=== PATIENT | female | born 1950 | race Caucasian/White ===

== ENCOUNTER 2018-06-11 13:48 | Emergency (ER) | payer MEDICARE, MEDICAID ==
[~2018-06-11] VITALS: Ht 545.9 cm; Wt 60.0 kg
[~2018-06-11 13:48] MED LIST: ALLO100T PO; CLON-527 PO; CLOP75TA35 PO; DIPH-423 PO; ESOM40CA PO; ESTR0.3T10 PO; GABA300C PO; HYDR-565 PO; SUMA25TA35 PO; SYN0.025T PO; TOP100T PO; TRAZ-91 PO; VAL5T PO; WEL75T PO; ZOLP5TAB8 PO
[2018-06-11 15:03] VITALS: BP 136/70
[2018-06-11] MEDS ORDERED: diazepam 5mg tablet PO ONE (15:15)
[2018-06-11] MEDS ORDERED: HYDROmorphone 1 mg/ml syringe IM ONE (15:55)
[2018-06-11] MEDS ORDERED: METH-360 PO (15:56)
== END 2018-06-11 16:55 | disposition home or self-care (01) ==
LOC: ER 13:49
DX: S40.011A Contusion of right shoulder, initial encounter (principal); M54.6 Pain in thoracic spine; M54.2 Cervicalgia; G89.29 Other chronic pain; M19.90 Unspecified osteoarthritis, unspecified site; Z90.710 Acquired absence of both cervix and uterus; Z98.890 Other specified postprocedural states; Z88.0 Allergy status to penicillin; Z88.6 Allergy status to analgesic agent; Z88.5 Allergy status to narcotic agent; Z88.8 Allergy status to other drugs, medicaments and biological substances; Z79.899 Other long term (current) drug therapy; W01.0XXA Fall on same level from slipping, tripping and stumbling without subsequent striking against object, initial encounter; Y93.89 Activity, other specified; Y92.89 Other specified places as the place of occurrence of the external cause; Y99.8 Other external cause status
CPT/HCPCS: 73010; 96372; 99284; J1170

== ENCOUNTER 2018-07-03 09:51 | Emergency (ER) | payer MEDICARE, MEDICAID ==
[~2018-07-03] VITALS: Ht 167.6 cm; Wt 62.0 kg
[~2018-07-03 09:51] MED LIST changes: +METH-360 PO
[2018-07-03] MEDS ORDERED: LORazepam 2 mg/ml vial IV ONE (10:00)
[2018-07-03] MEDS ORDERED: normal saline 1000ML IV soln IVB ONE (10:00)
[2018-07-03] MEDS ORDERED: diphenhydrAMINE 50 mg/ml inj IV ONE (10:00)
[2018-07-03] MEDS ORDERED: metoclopramide 5 mg/ml inj IV ONE (10:00)
[2018-07-03 10:19] LABS: BASOPHILS % (AUTO) 0.4 % (0-1); EOSINOPHILS # (AUTO) 0.4 X10'3 (0-0.9); EOSINOPHILS % (AUTO) 3.9 % (0-6); HEMATOCRIT 42.2 % (35.0-45.0); HEMOGLOBIN 14.3 g/dl (12.0-16.0); LYMPHOCYTES # (AUTO) 3.5 X10'3 (1.1-4.8); LYMPHOCYTES % (AUTO) 32.4 % (21-51); MEAN CORPUSCULAR HEMOGLOBIN 30.5 PG (27.0-31.0); MEAN CORPUSCULAR HGB CONC 33.9 % (33.0-36.5); MONOCYTES # (AUTO) 1.2 X10'3 (0-0.9); MONOCYTES % (AUTO) 10.7 % (2-12); NEUTROPHILS # (AUTO) 5.7 X10'3 (1.8-7.7); NEUTROPHILS % (AUTO) 52.6 % (42-75); PLATELET COUNT 248 X10'3 (140-440); RED BLOOD COUNT 4.69 X10'6 (4.20-5.60); RED CELL DISTRIBUTION WIDTH 14.1 % (11.5-14.5); WHITE BLOOD COUNT 10.9 X10'3 (4.5-11.0)
[2018-07-03 10:34] LABS: ALANINE AMINOTRANSFERASE 17 U/L (12-78); ALBUMIN 3.6 G/DL (3.4-5.0); ALBUMIN/GLOBULIN RATIO 0.9 (1.1-1.5); ALKALINE PHOSPHATASE 88 IU/L (46-116); ANION GAP 9 (8-16); ASPARTATE AMINO TRANSFERASE 20 U/L (10-37); BILIRUBIN,TOTAL 0.5 MG/DL (0.1-1.0); BLOOD UREA NITROGEN 7 MG/DL (7-18); BUN/CREATININE RATIO 9.2 (6.6-38.0); CALCIUM 9.9 MG/DL (8.5-10.1); CHLORIDE 109 MMOL/L (99-107); CREATININE 0.76 MG/DL (0.40-0.90); ETHANOL < 0.010 GM/DL (0.0-0.010); GLUCOSE 113 MG/DL (70-104); POTASSIUM 4.2 MMOL/L (3.5-5.1); SODIUM 145 MMOL/L (135-145); TOTAL CARBON DIOXIDE 27.3 MMOL/L (24-32); TOTAL PROTEIN 7.4 G/DL (6.4-8.2); eGFR 76 ML/MIN
[2018-07-03 10:44] LABS: CLARITY,URINE CLEAR (Clear); COLOR,URINE YELLOW (Yellow); GLUCOSE, URINE NEGATIVE (Neg); KETONES,URINE NEGATIVE (Neg); LEUKOCYTE ESTERASE ,URINE SMALL (Neg); NITRITES, URINE NEGATIVE (Neg); OCCULT BLOOD,URINE NEGATIVE (Neg); PH,URINE 6.5 (4.8-8.0); PROTEIN,URINE NEGATIVE (Neg); UROBILINOGEN,URINE 0.2 E.U/dL (0.2-1.0)
[2018-07-03 10:51] LABS: UA COLLECTION TYPE STRAIGHT CATH
[2018-07-03 10:53] LABS: BACTERIA,URINE FEW /HPF (Neg); RBC,URINE NONE SEEN /HPF (0-2); SQUAMOUS EPITHELIAL CELL,UR FEW /LPF (FEW); URINE AMPHETAMINE SCREEN NEGATIVE (Neg); URINE BARBITUATE SCREEN NEGATIVE (Neg); URINE BENZODIAZEPINES SCREEN NEGATIVE (Neg); URINE CANNABINOID SCREEN NEGATIVE (Neg); URINE COCAINE SCREEN NEGATIVE (Neg); URINE METHADONE SCREEN NEGATIVE (Neg); URINE OPIATE SCREEN POSITIVE (Neg); URINE PHENCYCLIDINE SCREEN NEGATIVE (Neg); WBC,URINE 0-4 /HPF (0-4)
[2018-07-03 11:03] VITALS: BP 90/50
== END 2018-07-03 12:12 | disposition home or self-care (01) ==
LOC: ER 09:51
DX: R45.1 Restlessness and agitation (principal); T42.6X5A Adverse effect of other antiepileptic and sedative-hypnotic drugs, initial encounter; T42.8X5A Adverse effect of antiparkinsonism drugs and other central muscle-tone depressants, initial encounter; F05 Delirium due to known physiological condition; G89.29 Other chronic pain; M19.90 Unspecified osteoarthritis, unspecified site; Z90.710 Acquired absence of both cervix and uterus; Z98.890 Other specified postprocedural states; Z88.0 Allergy status to penicillin; Z88.6 Allergy status to analgesic agent; Z88.5 Allergy status to narcotic agent; Z88.8 Allergy status to other drugs, medicaments and biological substances; Z79.899 Other long term (current) drug therapy; Y92.89 Other specified places as the place of occurrence of the external cause
CPT/HCPCS: 36415; 80053; 80305; 80320; 81001; 85025; 96361; 96374; 99284; J2765; J7030; J1200; J2060

== ENCOUNTER 2018-10-02 16:20 | Emergency (ER) | payer MEDICARE, MEDICAID ==
[~2018-10-02] VITALS: Ht 154.9 cm; Wt 68.0 kg
[~2018-10-02 16:20] MED LIST changes: +HYDR-4353 PO; -HYDR-565 PO
[2018-10-02] MEDS ORDERED: HYDROmorphone 1 mg/ml syringe IM ONE (18:10)
[2018-10-02] MEDS ORDERED: ORPH100T2 PO (18:44)
[2018-10-02 19:24] VITALS: BP 138/95
== END 2018-10-02 19:40 | disposition home or self-care (01) ==
LOC: ER 16:21
DX: M54.2 Cervicalgia (principal); G89.29 Other chronic pain; M79.7 Fibromyalgia; M19.90 Unspecified osteoarthritis, unspecified site; Z90.710 Acquired absence of both cervix and uterus; Z98.890 Other specified postprocedural states; Z88.0 Allergy status to penicillin; Z88.6 Allergy status to analgesic agent; Z88.8 Allergy status to other drugs, medicaments and biological substances; Z88.5 Allergy status to narcotic agent; Z79.899 Other long term (current) drug therapy; W22.8XXA Striking against or struck by other objects, initial encounter; Y93.89 Activity, other specified; Y92.89 Other specified places as the place of occurrence of the external cause; Y99.9 Unspecified external cause status
CPT/HCPCS: 72125; 96372; 99284; J1170

== ENCOUNTER 2018-10-24 11:54 | Emergency (ER) | payer MEDICARE, MEDICAID ==
[~2018-10-24] VITALS: Ht 154.9 cm; Wt 64.9 kg
[~2018-10-24 11:54] MED LIST changes: +ORPH100T2 PO
[2018-10-24] MEDS ORDERED: HYDROcodone/acetaminophen 5mg/325mg tablet PO ONE (13:15)
[2018-10-24 13:34] VITALS: BP 160/63
== END 2018-10-24 14:11 | disposition home or self-care (01) ==
LOC: ER 11:55
DX: S20.212A Contusion of left front wall of thorax, initial encounter (principal); S09.8XXA Other specified injuries of head, initial encounter; G89.29 Other chronic pain; M79.7 Fibromyalgia; M19.90 Unspecified osteoarthritis, unspecified site; M81.0 Age-related osteoporosis without current pathological fracture; Z88.0 Allergy status to penicillin; Z88.6 Allergy status to analgesic agent; Z88.5 Allergy status to narcotic agent; Z88.8 Allergy status to other drugs, medicaments and biological substances; Z79.899 Other long term (current) drug therapy; Z90.710 Acquired absence of both cervix and uterus; W18.09XA Striking against other object with subsequent fall, initial encounter; Y93.89 Activity, other specified; Y92.89 Other specified places as the place of occurrence of the external cause; Y99.8 Other external cause status
CPT/HCPCS: 70450; 71046; 72125; 99284

== ENCOUNTER 2018-12-06 20:53 | Emergency (ER) | payer MEDICARE, MEDICAID ==
[~2018-12-06] VITALS: Ht 154.9 cm; Wt 64.8 kg
[2018-12-06 21:06] VITALS: BP 134/78
[2018-12-06] MEDS ORDERED: normal saline 1000ML IV soln IVB ONE ×2 (21:50→22:40)
[2018-12-06 22:28] LABS: BASOPHILS # (AUTO) 0.1 X10'3 (0-0.2); BASOPHILS % (AUTO) 0.4 % (0-1); EOSINOPHILS # (AUTO) 0.4 X10'3 (0-0.9); HEMATOCRIT 39.4 % (35.0-45.0); HEMOGLOBIN 13.4 g/dl (12.0-16.0); LYMPHOCYTES # (AUTO) 3.2 X10'3 (1.1-4.8); LYMPHOCYTES % (AUTO) 24.4 % (21-51); MEAN CORPUSCULAR HGB CONC 34.1 % (33.0-36.5); MEAN CORPUSCULAR VOLUME 88.2 FL (78-98); MEAN PLATELET VOLUME 7.5 FL (7.4-10.4); MONOCYTES # (AUTO) 1.3 X10'3 (0-0.9); NEUTROPHILS # (AUTO) 8.1 X10'3 (1.8-7.7); NEUTROPHILS % (AUTO) 62.2 % (42-75); PLATELET COUNT 271 X10'3 (140-440); RED BLOOD COUNT 4.47 X10'6 (4.20-5.60); RED CELL DISTRIBUTION WIDTH 14.5 % (11.5-14.5)
[2018-12-06 22:34] LABS: ALANINE AMINOTRANSFERASE 23 U/L (12-78); ALBUMIN 3.8 G/DL (3.4-5.0); ALKALINE PHOSPHATASE 100 IU/L (46-116); ANION GAP 10 (8-16); ASPARTATE AMINO TRANSFERASE 22 U/L (10-37); BILIRUBIN,TOTAL 0.5 MG/DL (0.1-1.0); BLOOD UREA NITROGEN 13 MG/DL (7-18); BUN/CREATININE RATIO 12.9 (6.6-38.0); CALCIUM 9.5 MG/DL (8.5-10.1); CHLORIDE 107 MMOL/L (99-107); CREATININE 1.01 MG/DL (0.40-0.90); GLUCOSE 113 MG/DL (70-104); POTASSIUM 3.7 MMOL/L (3.5-5.1); SODIUM 146 MMOL/L (135-145); TOTAL CARBON DIOXIDE 29.1 MMOL/L (24-32); TOTAL PROTEIN 7.6 G/DL (6.4-8.2); eGFR 55 ML/MIN
[2018-12-06 22:57] LABS: URINE AMPHETAMINE SCREEN NEGATIVE (Neg); URINE BARBITUATE SCREEN NEGATIVE (Neg); URINE BENZODIAZEPINES SCREEN NEGATIVE (Neg); URINE CANNABINOID SCREEN NEGATIVE (Neg); URINE COCAINE SCREEN NEGATIVE (Neg); URINE METHADONE SCREEN NEGATIVE (Neg); URINE OPIATE SCREEN POSITIVE (Neg); URINE PHENCYCLIDINE SCREEN NEGATIVE (Neg)
[2018-12-06 23:04] LABS: CLARITY,URINE CLEAR (Clear); COLOR,URINE YELLOW (Yellow); GLUCOSE, URINE NEGATIVE (Neg); KETONES,URINE NEGATIVE (Neg); LEUKOCYTE ESTERASE ,URINE SMALL (Neg); NITRITES, URINE NEGATIVE (Neg); OCCULT BLOOD,URINE MODERATE (Neg); PROTEIN,URINE NEGATIVE (Neg); UROBILINOGEN,URINE 0.2 E.U/dL (0.2-1.0)
[2018-12-06 23:14] LABS: UA COLLECTION TYPE CLN CATCH MIDSTREAM
--- NOTE | 2018-12-06 23:15 | NUR ---
pt offered a bedside commode to collect a UA, pt did not respond to requests to use the commode; unable to orient. Attempted to straight cath pt for UA. PT uncooperative stating she was 'broken down there", grabbing at staff and thrashing on the bed. Two nurses assisted pt to commode and urine was collected.
[2018-12-06 23:16] LABS: SQUAMOUS EPITHELIAL CELL,UR FEW /LPF (FEW)
[2018-12-06 23:17] LABS: BACTERIA,URINE 1+ /HPF (Neg); WBC,URINE 0-4 /HPF (0-4)
--- NOTE | 2018-12-07 00:10 | NUR ---
IV site bleeding and infiltrated. IV removed from L AC, w/ heavy bleeding from site. Compression bandaged applied to control bleeding.
--- NOTE | 2018-12-07 00:11 | NUR ---
Pt uncooperative with placement of new IV. Pt thrashes arms and legs, clutching her head stating her head hurts. Unable to orient place, time or situation.
--- NOTE | 2018-12-07 00:54 | NUR ---
contacted pt son Darren Haskins, notified him that his mother was being discharged and to please come him to take her home.
--- NOTE | 2018-12-07 01:05 | NUR ---
pt continues to ask where she is; pt reoriented as needed. Waiting for son to give her a ride home.
== END 2018-12-07 01:19 | disposition home or self-care (01) ==
LOC: ER 20:54
DX: R51 Headache (principal); G89.29 Other chronic pain; E03.9 Hypothyroidism, unspecified; M79.7 Fibromyalgia; M19.90 Unspecified osteoarthritis, unspecified site; M81.0 Age-related osteoporosis without current pathological fracture; Z98.890 Other specified postprocedural states; Z90.710 Acquired absence of both cervix and uterus; Z88.0 Allergy status to penicillin; Z88.6 Allergy status to analgesic agent; Z88.5 Allergy status to narcotic agent; Z79.899 Other long term (current) drug therapy
CPT/HCPCS: 36415; 80053; 80305; 81001; 85025; 87088; 99284; J7030

== ENCOUNTER 2018-12-17 16:05 | Emergency (ER) | payer MEDICARE, MEDICAID ==
[~2018-12-17] VITALS: Ht 154.9 cm; Wt 66.0 kg
[2018-12-17 16:10] VITALS: BP 130/48
[2018-12-17] MEDS ORDERED: normal saline 1000ML IV soln IVB ONE (16:10)
--- NOTE | 2018-12-17 16:39 | NUR ---
CAREGIVER AT BEDSIDE AND STATES, PT VERY DEPRESSED TODAY HAD TO PUT HER DOG DOWN, DUE TO BITING. PT TOOK MULTIPLE MEDS TODAY, METROPOLOL 50MG, OXCONTIN 2 20MG TABS, GABAPENTIN?, BACLOFEN 2 TABS DOESNT KNOW DOSE.
[2018-12-17 16:40] LABS: BASOPHILS % (AUTO) 0.4 % (0-1); EOSINOPHILS # (AUTO) 0.2 X10'3 (0-0.9); EOSINOPHILS % (AUTO) 2.3 % (0-6); HEMATOCRIT 42.3 % (35.0-45.0); HEMOGLOBIN 14.2 g/dl (12.0-16.0); LYMPHOCYTES # (AUTO) 1.7 X10'3 (1.1-4.8); LYMPHOCYTES % (AUTO) 18.5 % (21-51); MEAN CORPUSCULAR HEMOGLOBIN 29.7 PG (27.0-31.0); MEAN CORPUSCULAR HGB CONC 33.6 g/dL (33.0-36.5); MEAN CORPUSCULAR VOLUME 88.5 FL (78-98); MEAN PLATELET VOLUME 7.8 FL (7.4-10.4); MONOCYTES # (AUTO) 0.7 X10'3 (0-0.9); MONOCYTES % (AUTO) 8.1 % (2-12); NEUTROPHILS # (AUTO) 6.5 X10'3 (1.8-7.7); NEUTROPHILS % (AUTO) 70.7 % (42-75); PLATELET COUNT 324 X10'3 (140-440); RED BLOOD COUNT 4.78 X10'6 (4.20-5.60); RED CELL DISTRIBUTION WIDTH 14.4 % (11.5-14.5); WHITE BLOOD COUNT 9.1 X10'3 (4.5-11.0)
[2018-12-17 16:56] LABS: ALANINE AMINOTRANSFERASE 20 U/L (12-78); ALBUMIN 3.6 G/DL (3.4-5.0); ALBUMIN/GLOBULIN RATIO 0.9 (1.1-1.5); ALKALINE PHOSPHATASE 108 IU/L (46-116); ANION GAP 13 (8-16); ASPARTATE AMINO TRANSFERASE 18 U/L (10-37); BILIRUBIN,TOTAL 0.4 MG/DL (0.1-1.0); BLOOD UREA NITROGEN 12 MG/DL (7-18); BUN/CREATININE RATIO 12.2 (6.6-38.0); CALCIUM 8.8 MG/DL (8.5-10.1); CHLORIDE 108 MMOL/L (99-107); CREATININE 0.98 MG/DL (0.40-0.90); ETHANOL < 0.010 GM/DL (0.0-0.010); GLUCOSE 152 MG/DL (70-104); POTASSIUM 3.7 MMOL/L (3.5-5.1); SODIUM 143 MMOL/L (135-145); TOTAL CARBON DIOXIDE 21.7 MMOL/L (24-32); TOTAL PROTEIN 7.6 G/DL (6.4-8.2); eGFR 57 ML/MIN
--- NOTE | 2018-12-17 18:32 | NUR ---
PT TAKEN TO BATHROOM AND PLACED ON TOILET. PT COULD NOT URINATE. TRANSFERRED BACK TO WHEELCHAIR AFTER 15 MINS.
== END 2018-12-17 18:35 | disposition home or self-care (01) ==
LOC: ER 16:06
DX: G89.4 Chronic pain syndrome (principal); R06.89 Other abnormalities of breathing; E86.0 Dehydration; R51 Headache; E03.9 Hypothyroidism, unspecified; M19.90 Unspecified osteoarthritis, unspecified site; M81.0 Age-related osteoporosis without current pathological fracture; Z90.710 Acquired absence of both cervix and uterus; Z88.0 Allergy status to penicillin; Z88.6 Allergy status to analgesic agent; Z88.5 Allergy status to narcotic agent; Z79.899 Other long term (current) drug therapy
CPT/HCPCS: 36415; 80053; 80320; 85025; 99283

== ENCOUNTER 2018-12-17 18:36 | Emergency (ER) | payer MEDICARE, MEDICAID | END 2018-12-17 23:56 | disposition left against medical advice (07) | LOC: ER 18:37 | DX: R53.1 Weakness (principal); Z53.21 Procedure and treatment not carried out due to patient leaving prior to being seen by health care provider ==

== ENCOUNTER 2021-01-02 16:32 | Emergency (ER) | payer BC, MEDICAID ==
[~2021-01-02] VITALS: Ht 154.9 cm; Wt 63.6 kg
[~2021-01-02 16:32] MED LIST changes: +CLOP75TA34 PO; -CLOP75TA35 PO; +DIAZ5TAB22 PO; -VAL5T PO
--- NOTE | 2021-01-02 16:41 | NUR ---
Dr Willis at bedside.
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
[2021-01-02 19:42] LABS: CLARITY,URINE SLIGHTLY CLOUDY (Clear); COLOR,URINE YELLOW (Yellow); GLUCOSE, URINE NEGATIVE (Neg); KETONES,URINE NEGATIVE (Neg); LEUKOCYTE ESTERASE ,URINE MODERATE (Neg); NITRITES, URINE NEGATIVE (Neg); OCCULT BLOOD,URINE NEGATIVE (Neg); PROTEIN,URINE NEGATIVE (Neg); UROBILINOGEN,URINE 0.2 E.U/dL (0.2-1.0)
[2021-01-02 19:44] LABS: UA COLLECTION TYPE CLN CATCH MIDSTREAM
[2021-01-02] MEDS ORDERED: HYDROcodone/acetaminophen 5mg/325mg tablet PO ONE (19:50)
[2021-01-02 20:01] LABS: BACTERIA,URINE 1+ /HPF (Neg); MUCUS STRANDS NONE SEEN /LPF (Neg); RBC,URINE NONE SEEN /HPF (0-2); SQUAMOUS EPITHELIAL CELL,UR MODERATE /LPF (FEW); WBC,URINE 20-30 /HPF (0-4)
[2021-01-02 20:02] LABS: YEAST FEW /HPF (NEGATIVE)
[2021-01-02] MEDS ORDERED: NITR100C6 PO (20:06)
--- NOTE | 2021-01-02 20:08 | NUR ---
after talking with pt and [employer] there was not enough evidence to support a sart exam, i talked with patient and told her that we can still do an exam but that the police would not be involved. I also offered pt to do a pelvic exam and collect urine to see if we saw anything abnormal and then we would do a sart exam if there was any evidence of any trauma. pt agreed to this and we will proceded with a medical pelvic exam and continue to monitor. [facility] advocate is at bedside through all of this.
--- NOTE | 2021-01-02 20:15 | NUR ---
After pelvic exam was done i asked pt if she felt ok about the exam that was performed and if she was ok with us not doing a sart exam. Pt stated "yes, im very relieved that nothing was seen and i am very happy with everything that you did today thank you so much." [employer] was called and are on their way to pickling operator pt.
[2021-01-02 20:24] VITALS: BP 136/91
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
--- NOTE | 2021-01-02 20:56 | NUR ---
the reference number from [facility] [id number] officer Jana valadez
== END 2021-01-02 21:25 | disposition home or self-care (01) ==
LOC: ER 16:33 → EEVIPCON 16:33 → ER 21:25
DX: R10.2 Pelvic and perineal pain (principal); N39.0 Urinary tract infection, site not specified; E03.9 Hypothyroidism, unspecified; G89.29 Other chronic pain; M79.7 Fibromyalgia; M81.0 Age-related osteoporosis without current pathological fracture; M19.90 Unspecified osteoarthritis, unspecified site; F17.200 Nicotine dependence, unspecified, uncomplicated; Z90.710 Acquired absence of both cervix and uterus; Z88.0 Allergy status to penicillin; Z88.8 Allergy status to other drugs, medicaments and biological substances; Z91.013 Allergy to seafood; Z79.818 Long term (current) use of other agents affecting estrogen receptors and estrogen levels; Z79.899 Other long term (current) drug therapy
CPT/HCPCS: 81001; 87088; 99284

== ENCOUNTER 2021-10-06 12:55 | Emergency (ER) | payer BC, MEDICAID ==
[~2021-10-06] VITALS: Ht 154.9 cm; Wt 63.0 kg
[~2021-10-06 12:55] MED LIST changes: +ALPR0.255 PO; +ATOR20TA66 PO; -CLON-527 PO; -DIAZ5TAB22 PO; -DIPH-423 PO; +LEVO100T PO; -METH-360 PO; -ORPH100T2 PO; -SYN0.025T PO; +TIZA-205 PO; +VENL75CA61 PO; -WEL75T PO; -ZOLP5TAB8 PO
[2021-10-06 15:07] VITALS: BP 233/117
[2021-10-06] MEDS ORDERED: cyclobenzaprine 10mg tablet PO ONE (18:50)
[2021-10-06] MEDS ORDERED: HYDROcodone/acetaminophen 5mg/325mg tablet PO ONE (18:50)
[2021-10-06] MEDS ORDERED: TIZA4TAB11 PO (18:51)
== END 2021-10-06 19:06 | disposition home or self-care (01) ==
LOC: ER 12:56
DX: M25.551 Pain in right hip (principal); M25.511 Pain in right shoulder; G89.29 Other chronic pain; I10 Essential (primary) hypertension; K21.9 Gastro-esophageal reflux disease without esophagitis; E03.9 Hypothyroidism, unspecified; F41.9 Anxiety disorder, unspecified; Z90.710 Acquired absence of both cervix and uterus; Z98.890 Other specified postprocedural states; Z88.0 Allergy status to penicillin; Z88.8 Allergy status to other drugs, medicaments and biological substances; Z88.6 Allergy status to analgesic agent; Z79.899 Other long term (current) drug therapy
CPT/HCPCS: 73060; 73502; 99284

== ENCOUNTER 2023-05-07 15:38 | Emergency (ER) | payer OTHER, MEDICAID ==
[~2023-05-07] VITALS: Ht 160 cm; Wt 65.0 kg
[~2023-05-07 15:38] MED LIST changes: +TIZA4TAB11 PO
[2023-05-07] MEDS ORDERED: normal saline 1000ML IV soln IVB ONE (16:00)
[2023-05-07] MEDS ORDERED: ondansetron/PF 4mg/2ml inj IV ONE (16:20)
[2023-05-07 16:23] LABS: BASOPHILS # (AUTO) 0.1 X10'3 (0-0.2); BASOPHILS % (AUTO) 0.6 % (0-1); EOSINOPHILS # (AUTO) 0.4 X10'3 (0-0.9); EOSINOPHILS % (AUTO) 2.7 % (0-6); HEMATOCRIT 44.2 % (35.0-45.0); HEMOGLOBIN 15.5 g/dl (12.0-16.0); LYMPHOCYTES # (AUTO) 3.8 X10'3 (1.1-4.8); LYMPHOCYTES % (AUTO) 27.4 % (21-51); MEAN CORPUSCULAR HEMOGLOBIN 30.4 PG (27.0-31.0); MEAN CORPUSCULAR VOLUME 86.9 FL (78-98); MEAN PLATELET VOLUME 7.3 FL (7.4-10.4); MONOCYTES # (AUTO) 1.3 X10'3 (0-0.9); MONOCYTES % (AUTO) 9.4 % (2-12); NEUTROPHILS # (AUTO) 8.3 X10'3 (1.8-7.7); NEUTROPHILS % (AUTO) 59.9 % (42-75); PLATELET COUNT 379 X10'3 (140-440); RED BLOOD COUNT 5.09 X10'6 (4.20-5.60); RED CELL DISTRIBUTION WIDTH 14.2 % (11.5-14.5); WHITE BLOOD COUNT 13.9 X10'3 (4.5-11.0)
--- NOTE | 2023-05-07 16:30 | NUR ---
Stroke alert called off at 1630.
[2023-05-07 16:38] LABS: APTT 25 SECONDS (22-32)
[2023-05-07 16:40] LABS: ALANINE AMINOTRANSFERASE 33 U/L (12-78); ALBUMIN 3.7 G/DL (3.4-5.0); ALBUMIN/GLOBULIN RATIO 0.9 (1.1-1.5); ALKALINE PHOSPHATASE 120 IU/L (46-116); ANION GAP 10 (8-16); ASPARTATE AMINO TRANSFERASE 30 U/L (10-37); BILIRUBIN,TOTAL 0.6 MG/DL (0.1-1.0); BLOOD UREA NITROGEN 14 MG/DL (7-18); BUN/CREATININE RATIO 15.2 (10.0-20.0); CALCIUM 9.2 MG/DL (8.5-10.1); CHLORIDE 102 MMOL/L (99-107); CREATININE 0.92 MG/DL (0.40-0.90); GLUCOSE 212 MG/DL (70-104); POTASSIUM 3.2 MMOL/L (3.5-5.1); SODIUM 140 MMOL/L (135-145); TOTAL PROTEIN 7.9 G/DL (6.4-8.2); eGFR 60 ML/MIN
--- NOTE | 2023-05-07 16:43 | NUR ---
Attempted to straight cath patient, patient refused, placed patient on bedpan. will try again on bed pain in 30 minutes
[2023-05-07] MEDS ORDERED: potassium Cl 20 mEq SR tablet PO STA (17:54)
[2023-05-07 22:16] LABS: CLARITY,URINE SLIGHTLY CLOUDY (Clear); COLOR,URINE YELLOW (Yellow); GLUCOSE, URINE NEGATIVE (Neg); KETONES,URINE NEGATIVE (Neg); LEUKOCYTE ESTERASE ,URINE SMALL (Neg); NITRITES, URINE NEGATIVE (Neg); OCCULT BLOOD,URINE NEGATIVE (Neg); PH,URINE 6.5 (4.8-8.0); PROTEIN,URINE 100 mg/dl (Neg)
[2023-05-07 22:30] LABS: URINE AMPHETAMINE SCREEN POSITIVE (Neg); URINE BARBITUATE SCREEN NEGATIVE (Neg); URINE BENZODIAZEPINES SCREEN NEGATIVE (Neg); URINE CANNABINOID SCREEN POSITIVE (Neg); URINE COCAINE SCREEN NEGATIVE (Neg); URINE METHADONE SCREEN NEGATIVE (Neg); URINE OPIATE SCREEN NEGATIVE (Neg); URINE PHENCYCLIDINE SCREEN NEGATIVE (Neg)
[2023-05-07 22:35] LABS: UA COLLECTION TYPE NON-SPECIFIED
[2023-05-07 22:36] LABS: CAL OXALATE CRYSTALS 3+ /HPF (NEGATIVE)
[2023-05-07 22:37] LABS: HYALINE CASTS 0-3 /LPF (NEGATIVE); RBC,URINE NONE SEEN /HPF (0-2); SQUAMOUS EPITHELIAL CELL,UR MODERATE /LPF (FEW); TRANSITIONAL EPI CELLS,URINE FEW /HPF
[2023-05-07 22:38] LABS: BACTERIA,URINE 1+ /HPF (Neg); WBC CLUMPS,URINE FEW /HPF (NEGATIVE)
[2023-05-07] MEDS ORDERED: FOSFOMYCIN TROMETHAMINE 3 GM PACKET PO ONE (23:15)
[2023-05-07] MEDS ORDERED: carvedilol 6.25mg tablet PO ONE (23:20)
[2023-05-07] MEDS ORDERED: carvedilol 6.25mg tablet PO SCH (23:20)
[2023-05-07 23:30] VITALS: BP_DIAS 80
[2023-05-07] MEDS ORDERED: amLODIPine 5mg tablet PO ONE (23:45)
[2023-05-08 00:07] VITALS: BP_SYST 178
== END 2023-05-08 01:21 | disposition home or self-care (01) ==
LOC: ER 15:39
DX: N39.0 Urinary tract infection, site not specified (principal); R53.1 Weakness; E86.0 Dehydration; E87.6 Hypokalemia; F15.10 Other stimulant abuse, uncomplicated; I10 Essential (primary) hypertension; K21.9 Gastro-esophageal reflux disease without esophagitis; E03.9 Hypothyroidism, unspecified; Z88.0 Allergy status to penicillin; Z88.8 Allergy status to other drugs, medicaments and biological substances; Z90.710 Acquired absence of both cervix and uterus
CPT/HCPCS: 36415; 70450; 71045; 80053; 80305; 81001; 84145; 85025; 85610; 85730; 87088; 93005; 96374; 99285; J2405; J7030; C1758

== ENCOUNTER 2023-07-06 18:27 | Emergency (ER) | payer OTHER, MEDICAID ==
[~2023-07-06] VITALS: Ht 154.9 cm; Wt 63.6 kg
[2023-07-06 18:39] VITALS: BP 177/53; PULSE 78; TEMP 97.9; O2SAT 98
[2023-07-06] MEDS ORDERED: NAPR-56 PO (20:14)
[2023-07-06] MEDS ORDERED: ketorolac trometh inj. 60 MG/2 ML VIAL IM ONE (20:15)
[2023-07-06 20:40] VITALS: RESP 17
--- NOTE | 2023-07-06 20:49 | NUR ---
CALLED [facility] TO VERIFY PATIENT STAY.
--- NOTE | 2023-07-06 21:01 | NUR ---
[facility] CALLED FOR PT. EST TIME 30MIN
== END 2023-07-06 21:36 | disposition home or self-care (01) ==
LOC: ER 18:28
DX: S93.401A Sprain of unspecified ligament of right ankle, initial encounter (principal); I10 Essential (primary) hypertension; E03.9 Hypothyroidism, unspecified; G89.29 Other chronic pain; M79.7 Fibromyalgia; M19.90 Unspecified osteoarthritis, unspecified site; M06.9 Rheumatoid arthritis, unspecified; F17.200 Nicotine dependence, unspecified, uncomplicated; M81.0 Age-related osteoporosis without current pathological fracture; Z90.710 Acquired absence of both cervix and uterus; Z88.0 Allergy status to penicillin; Z88.5 Allergy status to narcotic agent; Z88.8 Allergy status to other drugs, medicaments and biological substances; Z79.899 Other long term (current) drug therapy; W22.8XXA Striking against or struck by other objects, initial encounter; Y93.01 Activity, walking, marching and hiking; Y92.89 Other specified places as the place of occurrence of the external cause; Y99.8 Other external cause status
CPT/HCPCS: 73610; 96372; 99283; J1885; A6449

== ENCOUNTER 2024-09-01 18:23 | Emergency (ER) | payer BC, MEDICAID ==
[~2024-09-01] VITALS: Ht 154.9 cm; Wt 56.8 kg
[2024-09-01 22:01] VITALS: BP 142/82; PULSE 82; RESP 18; TEMP 98.6; O2SAT 96
== END 2024-09-01 22:16 | disposition home or self-care (01) ==
LOC: ER 18:23
DX: M25.562 Pain in left knee (principal); M79.7 Fibromyalgia; M06.9 Rheumatoid arthritis, unspecified; K21.9 Gastro-esophageal reflux disease without esophagitis; I10 Essential (primary) hypertension; F17.200 Nicotine dependence, unspecified, uncomplicated; E03.9 Hypothyroidism, unspecified; M81.0 Age-related osteoporosis without current pathological fracture; G89.29 Other chronic pain; Z88.0 Allergy status to penicillin; Z88.6 Allergy status to analgesic agent; Z88.8 Allergy status to other drugs, medicaments and biological substances; Z88.5 Allergy status to narcotic agent; Z90.710 Acquired absence of both cervix and uterus; Z87.19 Personal history of other diseases of the digestive system
CPT/HCPCS: 29530; 73564; 93971; 99284

== ENCOUNTER 2024-09-13 11:16 | Inpatient (IN) | payer BC, MEDICAID ==
[~2024-09-13] VITALS: Ht 152.4 cm; Wt 63.8 kg
[2024-09-13] MEDS: HYDROcodone/acetaminophen 10/325mg tab PO ONE (13:14)
[2024-09-13] MEDS: ondansetron 4mg rapidly disintigrating tab PO ONE (13:15)
[2024-09-13] MEDS: morphine 4 MG/ML inj SYRINge IV ONE (14:35)
[2024-09-13 16:42] LABS: BILIRUBIN,URINE NEGATIVE (Neg); CLARITY,URINE SLIGHTLY CLOUDY (Clear); COLOR,URINE YELLOW (Yellow); GLUCOSE, URINE NEGATIVE (Neg); KETONES,URINE NEGATIVE (Neg); LEUKOCYTE ESTERASE ,URINE MODERATE (Neg); NITRITES, URINE NEGATIVE (Neg); OCCULT BLOOD,URINE TRACE-INTACT (Neg); PH,URINE 6.5 (4.8-8.0); PROTEIN,URINE NEGATIVE (Neg); UROBILINOGEN,URINE 0.2 E.U/dL (0.2-1.0)
[2024-09-13 16:46] LABS: UA COLLECTION TYPE NON-SPECIFIED
[2024-09-13 16:49] LABS: BACTERIA,URINE 1+ /HPF (Neg); MUCUS STRANDS NONE SEEN /LPF (Neg); RBC,URINE 0-2 /HPF (0-2); SQUAMOUS EPITHELIAL CELL,UR MODERATE /LPF (FEW); TRICHOMONAS,URINE FEW /HPF (NEGATIVE)
[2024-09-13] MEDS: diazepam 5mg tablet PO ONE (17:00)
[2024-09-13 17:17] LABS: BASOPHILS # (AUTO) 0.1 X10'3 (0-0.2); BASOPHILS % (AUTO) 0.6 % (0-1); EOSINOPHILS # (AUTO) 0.2 X10'3 (0-0.9); EOSINOPHILS % (AUTO) 1.3 % (0-6); HEMATOCRIT 46.5 % (35.0-45.0); HEMOGLOBIN 15.6 g/dl (12.0-16.0); LYMPHOCYTES # (AUTO) 3.3 X10'3 (1.1-4.8); LYMPHOCYTES % (AUTO) 21.2 % (21-51); MEAN CORPUSCULAR HEMOGLOBIN 29.4 PG (27.0-31.0); MEAN CORPUSCULAR HGB CONC 33.7 g/dL (33.0-36.5); MEAN CORPUSCULAR VOLUME 87.3 FL (78-98); MEAN PLATELET VOLUME 7.6 FL (7.4-10.4); MONOCYTES # (AUTO) 1.1 X10'3 (0-0.9); MONOCYTES % (AUTO) 7.3 % (2-12); NEUTROPHILS # (AUTO) 10.8 X10'3 (1.8-7.7); NEUTROPHILS % (AUTO) 69.6 % (42-75); PLATELET COUNT 276 X10'3 (140-440); RED BLOOD COUNT 5.32 X10'6 (4.20-5.60); RED CELL DISTRIBUTION WIDTH 14.3 % (11.5-14.5); WHITE BLOOD COUNT 15.5 X10'3 (4.5-11.0)
[2024-09-13 17:29] LABS: ALANINE AMINOTRANSFERASE 28 U/L (12-78); ALBUMIN 3.8 G/DL (3.4-5.0); ALKALINE PHOSPHATASE 117 IU/L (46-116); ANION GAP 8 (8-16); ASPARTATE AMINO TRANSFERASE 24 U/L (10-37); BILIRUBIN,TOTAL 0.9 MG/DL (0.1-1.0); BLOOD UREA NITROGEN 8 MG/DL (7-18); BUN/CREATININE RATIO 11.9 (10.0-20.0); CALCIUM 9.1 MG/DL (8.5-10.1); CHLORIDE 102 MMOL/L (99-107); CREATININE 0.67 MG/DL (0.40-0.90); GLUCOSE 164 MG/DL (70-104); POTASSIUM 3.9 MMOL/L (3.5-5.1); SODIUM 136 MMOL/L (135-145); TOTAL CARBON DIOXIDE 25.8 MMOL/L (24-32); TOTAL PROTEIN 7.8 G/DL (6.4-8.2); eCRCL 55 ML/MIN; eGFR 87 ML/MIN
[2024-09-13] MEDS ORDERED: acetaminophen 325mg tablet PO PRN (19:20)
[2024-09-13] MEDS: CefTRIAXone 2gm/D5W 50ml BAG 50 ML IV SCH (20:00)
[2024-09-13] MEDS: PERFLUTREN PROTEIN-A MICROSPHR (Optison) 0.22 MG/ML 3ML VIAL IV ONE (20:55)
[2024-09-13] MEDS: morphine 4 MG/ML inj SYRINge IV PRN (21:16)
[2024-09-13] MEDS: docusate sod 100mg capsule PO SCH (22:02)
[2024-09-13] MEDS: atorvastatin 20mg tablet PO SCH (22:02)
[2024-09-13] MEDS: normal saline 1000ml 1,000 ML IV SCH (22:03)
[2024-09-14 02:15] LABS: BASOPHILS # (AUTO) 0.1 X10'3 (0-0.2); BASOPHILS % (AUTO) 0.7 % (0-1); EOSINOPHILS # (AUTO) 0.4 X10'3 (0-0.9); HEMATOCRIT 44.6 % (35.0-45.0); HEMOGLOBIN 14.8 g/dl (12.0-16.0); LYMPHOCYTES # (AUTO) 3.7 X10'3 (1.1-4.8); MEAN CORPUSCULAR HEMOGLOBIN 29.3 PG (27.0-31.0); MEAN CORPUSCULAR HGB CONC 33.3 g/dL (33.0-36.5); MEAN PLATELET VOLUME 7.7 FL (7.4-10.4); MONOCYTES # (AUTO) 1.1 X10'3 (0-0.9); MONOCYTES % (AUTO) 8.3 % (2-12); PLATELET COUNT 255 X10'3 (140-440); RED BLOOD COUNT 5.07 X10'6 (4.20-5.60); RED CELL DISTRIBUTION WIDTH 14.5 % (11.5-14.5); WHITE BLOOD COUNT 13.3 X10'3 (4.5-11.0)
[2024-09-14 02:29] LABS: ALANINE AMINOTRANSFERASE 24 U/L (12-78); ALBUMIN 3.3 G/DL (3.4-5.0); ALBUMIN/GLOBULIN RATIO 0.8 (1.1-1.5); ALKALINE PHOSPHATASE 104 IU/L (46-116); ANION GAP 4 (8-16); ASPARTATE AMINO TRANSFERASE 25 U/L (10-37); BILIRUBIN,TOTAL 0.5 MG/DL (0.1-1.0); BLOOD UREA NITROGEN 8 MG/DL (7-18); BUN/CREATININE RATIO 10.1 (10.0-20.0); CALCIUM 8.6 MG/DL (8.5-10.1); CHLORIDE 99 MMOL/L (99-107); CREATININE 0.79 MG/DL (0.40-0.90); FREE T4 (FREE THYROXINE) 1.12 NG/DL (0.73-1.40); GLUCOSE 228 MG/DL (70-104); HDL CHOLESTEROL 46 MG/DL (35-60); LDL CHOLESTEROL 136 MG/DL (50-100); POTASSIUM 3.5 MMOL/L (3.5-5.1); SODIUM 132 MMOL/L (135-145); THYROID STIMULATING HORMONE 5.29 ulU/ml (0.34-4.50); TOTAL CARBON DIOXIDE 28.6 MMOL/L (24-32); TOTAL PROTEIN 7.4 G/DL (6.4-8.2); TRIGLYCERIDES 184 MG/DL (20-135); eCRCL 46 ML/MIN; eGFR 72 ML/MIN
[2024-09-14 02:33] LABS: CHOL/HDL RATIO 4.9 (0.00-4.99); CHOLESTEROL 224 MG/DL (0-200)
[2024-09-14] MEDS: levoTHYROXINE 100mcg tablet PO SCH (06:59)
[2024-09-14] MEDS ORDERED: clopidogrel 75mg tablet PO SCH (08:00)
[2024-09-14] MEDS: HYDROcodone/acetaminophen 10/325mg tab PO PRN (09:39)
[2024-09-14] MEDS ORDERED: iohexol 350MG/ML 100ml bottle IV ONE (10:36)
[2024-09-14] MEDS: nicotine 21mg patch - 24 hr TD SCH (10:37)
[2024-09-14] MEDS: cyclobenzaprine 10mg tablet PO SCH (11:16)
[2024-09-14] MEDS: ondansetron/PF 4mg/2ml inj IV PRN (11:26)
[2024-09-14] MEDS: metoprolol tartrate 1mg/ml inj IV STA (13:28)
[2024-09-14 14:00] VITALS: BP 200/60; PULSE 66; RESP 14; TEMP 98.1; O2SAT 96
[2024-09-14] MEDS: hydrALAZINE 20mg/ml inj. IV PRN (14:29)
[2024-09-14] MEDS: HYDROcodone/acetaminophen 5mg/325mg tablet PO PRN (14:37)
[2024-09-14 16:00] VITALS: RESP 14; O2SAT 96
[2024-09-14] MEDS: apixaban 5mg tablet PO SCH (16:00)
[2024-09-14 18:00] VITALS: BP 140/70; PULSE 72; RESP 19; TEMP 97.8; O2SAT 97
[2024-09-14 20:00] VITALS: RESP 18; O2SAT 97
[2024-09-14] MEDS: metoprolol tartrate 1mg/ml inj IV SCH (20:00)
[2024-09-14 22:00] VITALS: BP 98/62; PULSE 67; RESP 20; TEMP 97.8; O2SAT 97
[2024-09-14] MEDS: atorvastatin 20mg tablet PO SCH (22:08)
[2024-09-14] MEDS: morphine 2 MG/ML inj. syringe IV PRN (22:10)
[2024-09-15] VITALS (10 sets, daily range): BP systolic 108–200; BP diastolic 42–100; PULSE 68–85; RESP 11–21; TEMP 97.6–99.7; O2SAT 81–99
[2024-09-15] MEDS: HYDROmorphone inj. 0.5 MG/0.5 ML DISP.SYRIN IV PRN (03:08)
[2024-09-15] MEDS ORDERED: levoTHYROXINE 100mcg tablet PO SCH (07:00)
[2024-09-15 07:58] LABS: BASOPHILS # (AUTO) 0.1 X10'3 (0-0.2); BASOPHILS % (AUTO) 0.5 % (0-1); EOSINOPHILS # (AUTO) 0.3 X10'3 (0-0.9); EOSINOPHILS % (AUTO) 2.6 % (0-6); HEMATOCRIT 43.4 % (35.0-45.0); HEMOGLOBIN 14.5 g/dl (12.0-16.0); LYMPHOCYTES # (AUTO) 3.3 X10'3 (1.1-4.8); LYMPHOCYTES % (AUTO) 27.3 % (21-51); MEAN CORPUSCULAR HEMOGLOBIN 29.5 PG (27.0-31.0); MEAN CORPUSCULAR HGB CONC 33.5 g/dL (33.0-36.5); MEAN CORPUSCULAR VOLUME 88.1 FL (78-98); MEAN PLATELET VOLUME 7.8 FL (7.4-10.4); MONOCYTES # (AUTO) 0.9 X10'3 (0-0.9); MONOCYTES % (AUTO) 7.4 % (2-12); NEUTROPHILS # (AUTO) 7.6 X10'3 (1.8-7.7); NEUTROPHILS % (AUTO) 62.2 % (42-75); PLATELET COUNT 262 X10'3 (140-440); RED BLOOD COUNT 4.92 X10'6 (4.20-5.60); RED CELL DISTRIBUTION WIDTH 14.2 % (11.5-14.5); WHITE BLOOD COUNT 12.2 X10'3 (4.5-11.0)
[2024-09-15 08:15] LABS: ALANINE AMINOTRANSFERASE 24 U/L (12-78); ALBUMIN 3.2 G/DL (3.4-5.0); ALBUMIN/GLOBULIN RATIO 0.8 (1.1-1.5); ALKALINE PHOSPHATASE 90 IU/L (46-116); ANION GAP 6 (8-16); ASPARTATE AMINO TRANSFERASE 22 U/L (10-37); BILIRUBIN,TOTAL 0.5 MG/DL (0.1-1.0); BLOOD UREA NITROGEN 6 MG/DL (7-18); CALCIUM 8.7 MG/DL (8.5-10.1); CHLORIDE 102 MMOL/L (99-107); GLUCOSE 173 MG/DL (70-104); POTASSIUM 3.4 MMOL/L (3.5-5.1); SODIUM 136 MMOL/L (135-145); TOTAL CARBON DIOXIDE 27.7 MMOL/L (24-32); eCRCL 61 ML/MIN; eGFR > 90 ML/MIN
[2024-09-15] MEDS ORDERED: levoTHYROXINE 112mcg tablet PO SCH (11:09)
[2024-09-15] MEDS: levoTHYROXINE 112mcg tablet PO SCH (12:14)
[2024-09-15] MEDS: metoprolol tartrate 1mg/ml inj IV SCH ×2 (12:23→16:00)
[2024-09-15] MEDS ORDERED: HYDROmorphone inj. 0.5 MG/0.5 ML DISP.SYRIN IV PRN (14:00)
[2024-09-15] MEDS: HYDROmorphone/PF 0.2 MG/ML SYRINGE IV PRN (14:14)
[2024-09-15] MEDS: labetalol 20mg/4ml (5mg/ml) syringe IV ONE (14:16)
[2024-09-15] MEDS: famotidine 20mg tablet PO PRN (17:24)
[2024-09-15] MEDS: pantoprazole 40mg Tablet.DR PO SCH (17:33)
[2024-09-15] MEDS: sennosides/docusate sodium tablet PO SCH (20:00)
[2024-09-15] MEDS ORDERED: potassium Cl 20 mEq SR tablet PO PRN (20:25)
[2024-09-15] MEDS ORDERED: potassium Cl 40MEQ/1/2NS 520ml 520 ML IV PRN (20:25)
[2024-09-15] MEDS ORDERED: magnesium Cl slow-release 64mg tablet PO PRN (20:25)
[2024-09-15] MEDS ORDERED: magnesium sulf-water 2g/50mL 50 ML IV PRN (20:25)
[2024-09-15] MEDS ORDERED: magnesium sulf-water 4G/100mL 100 ML IV PRN (20:25)
[2024-09-16] VITALS (13 sets, daily range): BP systolic 142–210; BP diastolic 44–82; PULSE 60–83; RESP 13–21; TEMP 97.6–98.7; O2SAT 71–98
[2024-09-16] MEDS: potassium Cl 20 mEq SR tablet PO PRN (00:02)
[2024-09-16] MEDS: Melatonin 3mg tablet PO PRN (00:03)
[2024-09-16] MEDS: metoprolol tartrate 1mg/ml inj IV ONE (05:56)
[2024-09-16 07:35] LABS: BASOPHILS # (AUTO) 0.1 X10'3 (0-0.2); BASOPHILS % (AUTO) 0.7 % (0-1); EOSINOPHILS # (AUTO) 0.5 X10'3 (0-0.9); EOSINOPHILS % (AUTO) 4.4 % (0-6); HEMATOCRIT 41.6 % (35.0-45.0); LYMPHOCYTES # (AUTO) 3.3 X10'3 (1.1-4.8); LYMPHOCYTES % (AUTO) 29.6 % (21-51); MEAN CORPUSCULAR HEMOGLOBIN 29.5 PG (27.0-31.0); MEAN CORPUSCULAR HGB CONC 33.6 g/dL (33.0-36.5); MEAN CORPUSCULAR VOLUME 87.8 FL (78-98); MEAN PLATELET VOLUME 7.7 FL (7.4-10.4); MONOCYTES % (AUTO) 8.9 % (2-12); NEUTROPHILS # (AUTO) 6.3 X10'3 (1.8-7.7); NEUTROPHILS % (AUTO) 56.4 % (42-75); PLATELET COUNT 269 X10'3 (140-440); RED BLOOD COUNT 4.74 X10'6 (4.20-5.60); RED CELL DISTRIBUTION WIDTH 14.4 % (11.5-14.5); WHITE BLOOD COUNT 11.2 X10'3 (4.5-11.0)
[2024-09-16 07:37] LABS: ALANINE AMINOTRANSFERASE 20 U/L (12-78); ALBUMIN/GLOBULIN RATIO 0.8 (1.1-1.5); ALKALINE PHOSPHATASE 83 IU/L (46-116); ANION GAP 7 (8-16); ASPARTATE AMINO TRANSFERASE 23 U/L (10-37); BILIRUBIN,TOTAL 0.5 MG/DL (0.1-1.0); BLOOD UREA NITROGEN 9 MG/DL (7-18); BUN/CREATININE RATIO 13.6 (10.0-20.0); CALCIUM 8.6 MG/DL (8.5-10.1); CHLORIDE 103 MMOL/L (99-107); CREATININE 0.66 MG/DL (0.40-0.90); GLUCOSE 206 MG/DL (70-104); POTASSIUM 3.9 MMOL/L (3.5-5.1); SODIUM 135 MMOL/L (135-145); TOTAL CARBON DIOXIDE 24.6 MMOL/L (24-32); TOTAL PROTEIN 6.8 G/DL (6.4-8.2); eCRCL 55 ML/MIN; eGFR 88 ML/MIN
[2024-09-16] MEDS: K and/or MAG REPLACEMENT MC SCH (08:00)
[2024-09-16] MEDS: baclofen 10mg tablet PO PRN (14:15)
[2024-09-16] MEDS ORDERED: BACL10TA2 PO (16:24)
[2024-09-16] MEDS ORDERED: GLIP5TAB23 PO (16:26)
[2024-09-16] MEDS ORDERED: AMLO-380 PO (17:47)
[2024-09-16] MEDS ORDERED: BACL5TAB PO (17:48)
[2024-09-16] MEDS ORDERED: CETI10TA14 PO (18:13)
[2024-09-16] MEDS ORDERED: SERT-434 PO (18:13)
[2024-09-16] MEDS ORDERED: SUMA25TA9 (18:13)
[2024-09-16] MEDS ORDERED: ESTR2TAB6 PO (18:13)
[2024-09-16] MEDS ORDERED: METF-1203 PO (18:13)
[2024-09-16] MEDS ORDERED: AMLO-379 PO (18:13)
[2024-09-16] MEDS ORDERED: METO25TA6 PO (18:13)
[2024-09-16] MEDS ORDERED: ATOR-2 PO (18:13)
[2024-09-16] MEDS ORDERED: VENL75TA4 PO (18:13)
[2024-09-16] MEDS ORDERED: LEVO-65 PO (18:13)
[2024-09-16] MEDS ORDERED: TRAZ150T78 PO (18:13)
[2024-09-16] MEDS: cloNIDine 0.1 mg tablet PO ONE (19:07)
[2024-09-16] MEDS: LORazepam 2 mg/ml vial IM PRN (19:20)
[2024-09-17] VITALS (11 sets, daily range): BP systolic 139–209; BP diastolic 53–83; PULSE 59–72; RESP 12–21; TEMP 97.3–98.4; O2SAT 96–99
[2024-09-17 08:08] LABS: BASOPHILS # (AUTO) 0.1 X10'3 (0-0.2); BASOPHILS % (AUTO) 0.6 % (0-1); EOSINOPHILS # (AUTO) 0.7 X10'3 (0-0.9); EOSINOPHILS % (AUTO) 6.5 % (0-6); HEMATOCRIT 42.2 % (35.0-45.0); HEMOGLOBIN 14.5 g/dl (12.0-16.0); LYMPHOCYTES # (AUTO) 2.7 X10'3 (1.1-4.8); LYMPHOCYTES % (AUTO) 25.7 % (21-51); MEAN CORPUSCULAR HEMOGLOBIN 30.4 PG (27.0-31.0); MEAN CORPUSCULAR HGB CONC 34.4 g/dL (33.0-36.5); MEAN CORPUSCULAR VOLUME 88.3 FL (78-98); MEAN PLATELET VOLUME 8.1 FL (7.4-10.4); MONOCYTES % (AUTO) 9.8 % (2-12); NEUTROPHILS # (AUTO) 6.1 X10'3 (1.8-7.7); NEUTROPHILS % (AUTO) 57.4 % (42-75); PLATELET COUNT 268 X10'3 (140-440); RED BLOOD COUNT 4.78 X10'6 (4.20-5.60); RED CELL DISTRIBUTION WIDTH 14.1 % (11.5-14.5); WHITE BLOOD COUNT 10.6 X10'3 (4.5-11.0)
[2024-09-17 08:22] LABS: ALANINE AMINOTRANSFERASE 23 U/L (12-78); ALBUMIN 3.1 G/DL (3.4-5.0); ALBUMIN/GLOBULIN RATIO 0.8 (1.1-1.5); ALKALINE PHOSPHATASE 86 IU/L (46-116); ANION GAP 9 (8-16); ASPARTATE AMINO TRANSFERASE 28 U/L (10-37); BILIRUBIN,TOTAL 0.5 MG/DL (0.1-1.0); BLOOD UREA NITROGEN 10 MG/DL (7-18); BUN/CREATININE RATIO 14.5 (10.0-20.0); CHLORIDE 102 MMOL/L (99-107); CREATININE 0.69 MG/DL (0.40-0.90); GLUCOSE 191 MG/DL (70-104); POTASSIUM 3.8 MMOL/L (3.5-5.1); SODIUM 135 MMOL/L (135-145); TOTAL CARBON DIOXIDE 23.9 MMOL/L (24-32); TOTAL PROTEIN 7.1 G/DL (6.4-8.2); eCRCL 53 ML/MIN; eGFR 84 ML/MIN
[2024-09-17] MEDS: cloNIDine 0.1 mg tablet PO ONE (13:12)
[2024-09-17] MEDS: cloNIDine 0.1 mg tablet PO SCH (20:26)
[2024-09-18] VITALS (8 sets, daily range): BP systolic 125–173; BP diastolic 52–75; PULSE 63–84; RESP 13–18; TEMP 97.4–98.7; O2SAT 93–99
[2024-09-18 08:20] LABS: ALANINE AMINOTRANSFERASE 21 U/L (12-78); ALBUMIN 2.8 G/DL (3.4-5.0); ALBUMIN/GLOBULIN RATIO 0.8 (1.1-1.5); ALKALINE PHOSPHATASE 78 IU/L (46-116); ANION GAP 8 (8-16); ASPARTATE AMINO TRANSFERASE 26 U/L (10-37); BILIRUBIN,TOTAL 0.4 MG/DL (0.1-1.0); BLOOD UREA NITROGEN 13 MG/DL (7-18); BUN/CREATININE RATIO 21.7 (10.0-20.0); CALCIUM 8.7 MG/DL (8.5-10.1); CHLORIDE 103 MMOL/L (99-107); GLUCOSE 192 MG/DL (70-104); POTASSIUM 3.7 MMOL/L (3.5-5.1); SODIUM 134 MMOL/L (135-145); TOTAL CARBON DIOXIDE 23.5 MMOL/L (24-32); TOTAL PROTEIN 6.5 G/DL (6.4-8.2); eCRCL 61 ML/MIN; eGFR > 90 ML/MIN
[2024-09-18 08:52] LABS: BASOPHILS % (AUTO) 0.5 % (0-1); EOSINOPHILS # (AUTO) 0.6 X10'3 (0-0.9); EOSINOPHILS % (AUTO) 6.8 % (0-6); HEMATOCRIT 40.5 % (35.0-45.0); HEMOGLOBIN 13.6 g/dl (12.0-16.0); LYMPHOCYTES # (AUTO) 2.9 X10'3 (1.1-4.8); LYMPHOCYTES % (AUTO) 31.9 % (21-51); MEAN CORPUSCULAR HEMOGLOBIN 30.2 PG (27.0-31.0); MEAN CORPUSCULAR HGB CONC 33.7 g/dL (33.0-36.5); MEAN CORPUSCULAR VOLUME 89.4 FL (78-98); MEAN PLATELET VOLUME 8.3 FL (7.4-10.4); MONOCYTES # (AUTO) 0.7 X10'3 (0-0.9); MONOCYTES % (AUTO) 8.1 % (2-12); NEUTROPHILS # (AUTO) 4.7 X10'3 (1.8-7.7); NEUTROPHILS % (AUTO) 52.7 % (42-75); PLATELET COUNT 264 X10'3 (140-440); RED BLOOD COUNT 4.53 X10'6 (4.20-5.60); RED CELL DISTRIBUTION WIDTH 14.3 % (11.5-14.5)
[2024-09-18] MEDS: oxyCODONE/APAP 5-325mg tablet PO PRN (18:28)
[2024-09-18] MEDS ORDERED: DEXTROSE 15 GM of carb/4 tabs (each vial/BOTTLE has 4 tablets) PO PRN ×2 (23:55)
[2024-09-18] MEDS ORDERED: glucagon, human recombinant 1mg kit SUBCUT PRN (23:55)
[2024-09-18] MEDS ORDERED: dextrose 50%-water 50ml dispensing syringe IV PRN ×2 (23:55)
[2024-09-19] MEDS: insulin glargine (Lantus) pen - multi-dose SQ SCH (00:34)
[2024-09-19] MEDS: INSULIN LISPRO 100 UNIT/ML INSULN.PEN MULTI-DOSE SQ SCH (00:35)
[2024-09-19] MEDS: traZODone 150mg tablet PO SCH (00:36)
[2024-09-19] MEDS: magnesium hydroxide 30ml (MOM) UD suspension PO PRN (04:00)
[2024-09-19 05:56] LABS: BASOPHILS # (AUTO) 0.1 X10'3 (0-0.2); BASOPHILS % (AUTO) 0.8 % (0-1); EOSINOPHILS # (AUTO) 0.6 X10'3 (0-0.9); HEMATOCRIT 37.4 % (35.0-45.0); HEMOGLOBIN 12.6 g/dl (12.0-16.0); LYMPHOCYTES % (AUTO) 34.4 % (21-51); MEAN CORPUSCULAR HEMOGLOBIN 29.5 PG (27.0-31.0); MEAN CORPUSCULAR HGB CONC 33.7 g/dL (33.0-36.5); MEAN CORPUSCULAR VOLUME 87.6 FL (78-98); MEAN PLATELET VOLUME 7.9 FL (7.4-10.4); MONOCYTES # (AUTO) 0.8 X10'3 (0-0.9); MONOCYTES % (AUTO) 8.6 % (2-12); NEUTROPHILS # (AUTO) 4.3 X10'3 (1.8-7.7); NEUTROPHILS % (AUTO) 49.2 % (42-75); PLATELET COUNT 273 X10'3 (140-440); RED BLOOD COUNT 4.27 X10'6 (4.20-5.60); RED CELL DISTRIBUTION WIDTH 14.1 % (11.5-14.5); WHITE BLOOD COUNT 8.8 X10'3 (4.5-11.0)
[2024-09-19 06:00] VITALS: BP 156/66; PULSE 64; RESP 16; TEMP 98; O2SAT 98
[2024-09-19 06:17] LABS: ALANINE AMINOTRANSFERASE 25 U/L (12-78); ALBUMIN 2.8 G/DL (3.4-5.0); ALBUMIN/GLOBULIN RATIO 0.8 (1.1-1.5); ALKALINE PHOSPHATASE 85 IU/L (46-116); ANION GAP 8 (8-16); ASPARTATE AMINO TRANSFERASE 21 U/L (10-37); BILIRUBIN,TOTAL 0.4 MG/DL (0.1-1.0); BLOOD UREA NITROGEN 12 MG/DL (7-18); BUN/CREATININE RATIO 20.7 (10.0-20.0); CALCIUM 8.7 MG/DL (8.5-10.1); CHLORIDE 106 MMOL/L (99-107); CREATININE 0.58 MG/DL (0.40-0.90); GLUCOSE 159 MG/DL (70-104); POTASSIUM 3.7 MMOL/L (3.5-5.1); SODIUM 140 MMOL/L (135-145); TOTAL CARBON DIOXIDE 26.1 MMOL/L (24-32); TOTAL PROTEIN 6.2 G/DL (6.4-8.2); eCRCL 63 ML/MIN; eGFR > 90 ML/MIN
[2024-09-19] MEDS ORDERED: INSULIN LISPRO 100 UNIT/ML INSULN.PEN MULTI-DOSE SQ SCH (07:00)
[2024-09-19] MEDS: amLODIPine 5mg tablet PO SCH (08:00)
[2024-09-19] MEDS: levoTHYROXINE 100mcg tablet PO SCH (08:00)
[2024-09-19] MEDS: metoprolol tartrate 12.5mg (1/2 tablet) PO SCH (08:00)
[2024-09-19] MEDS: estradiol 1mg tablet PO SCH (08:00)
[2024-09-19] MEDS: atorvastatin 20mg tablet PO SCH (08:10)
[2024-09-19] MEDS: baclofen 10mg tablet PO SCH ×2 (08:15→21:36)
[2024-09-19] MEDS: cetirizine 10mg tablet PO SCH (08:15)
[2024-09-19] MEDS: clopidogrel 75mg tablet PO SCH (08:17)
[2024-09-19] MEDS: pantoprazole 40mg Tablet.DR PO SCH (08:17)
[2024-09-19] MEDS: allopurinol 100mg tablet PO SCH (08:17)
[2024-09-19] MEDS: sertraline 50mg tablet PO SCH (08:19)
[2024-09-19] MEDS: venlafaxine 25mg tablet PO SCH (08:19)
[2024-09-19 08:53] VITALS: RESP 14; O2SAT 98
[2024-09-19 10:00] VITALS: BP 133/76; PULSE 60; RESP 16; TEMP 96.8; O2SAT 98
[2024-09-19] MEDS: HYDROmorphone/PF 0.2 MG/ML SYRINGE IV PRN (13:25)
[2024-09-19] MEDS ORDERED: baclofen 10mg tablet PO PRN ×2 (13:30→13:32)
[2024-09-19] MEDS ORDERED: baclofen 10mg tablet PO SCH ×2 (13:31)
[2024-09-19 15:18] VITALS: RESP 18; O2SAT 98
[2024-09-19 18:00] VITALS: BP 130/52; PULSE 56; RESP 17; TEMP 97.9; O2SAT 98
[2024-09-19] MEDS ORDERED: traZODone 150mg tablet PO SCH (21:00)
[2024-09-19] MEDS: gabapentin 300mg capsule PO SCH (21:35)
[2024-09-19 22:00] VITALS: BP 123/70; PULSE 56; RESP 17; TEMP 98.6; O2SAT 98
[2024-09-20 06:00] VITALS: BP 150/48; PULSE 53; RESP 18; TEMP 98.2; O2SAT 96
[2024-09-20 07:22] LABS: BASOPHILS # (AUTO) 0.1 X10'3 (0-0.2); BASOPHILS % (AUTO) 0.8 % (0-1); EOSINOPHILS # (AUTO) 0.6 X10'3 (0-0.9); EOSINOPHILS % (AUTO) 6.3 % (0-6); HEMATOCRIT 38.8 % (35.0-45.0); HEMOGLOBIN 13.1 g/dl (12.0-16.0); LYMPHOCYTES # (AUTO) 2.8 X10'3 (1.1-4.8); LYMPHOCYTES % (AUTO) 31.6 % (21-51); MEAN CORPUSCULAR HEMOGLOBIN 29.6 PG (27.0-31.0); MEAN CORPUSCULAR HGB CONC 33.9 g/dL (33.0-36.5); MEAN CORPUSCULAR VOLUME 87.3 FL (78-98); MEAN PLATELET VOLUME 7.8 FL (7.4-10.4); MONOCYTES # (AUTO) 0.8 X10'3 (0-0.9); NEUTROPHILS # (AUTO) 4.7 X10'3 (1.8-7.7); NEUTROPHILS % (AUTO) 52.3 % (42-75); PLATELET COUNT 271 X10'3 (140-440); RED BLOOD COUNT 4.44 X10'6 (4.20-5.60); RED CELL DISTRIBUTION WIDTH 14.3 % (11.5-14.5); WHITE BLOOD COUNT 8.9 X10'3 (4.5-11.0)
[2024-09-20 07:36] LABS: ALANINE AMINOTRANSFERASE 29 U/L (12-78); ALBUMIN 3.1 G/DL (3.4-5.0); ALBUMIN/GLOBULIN RATIO 0.8 (1.1-1.5); ALKALINE PHOSPHATASE 102 IU/L (46-116); ANION GAP 2 (8-16); ASPARTATE AMINO TRANSFERASE 26 U/L (10-37); BILIRUBIN,TOTAL 0.4 MG/DL (0.1-1.0); BLOOD UREA NITROGEN 12 MG/DL (7-18); BUN/CREATININE RATIO 17.6 (10.0-20.0); CALCIUM 8.7 MG/DL (8.5-10.1); CHLORIDE 102 MMOL/L (99-107); CREATININE 0.68 MG/DL (0.40-0.90); GLUCOSE 141 MG/DL (70-104); SODIUM 134 MMOL/L (135-145); TOTAL PROTEIN 6.8 G/DL (6.4-8.2); eCRCL 54 ML/MIN; eGFR 85 ML/MIN
[2024-09-20 08:00] VITALS: RESP 18; O2SAT 96
[2024-09-20 10:00] VITALS: BP 134/74; PULSE 61; RESP 14; TEMP 98.4; O2SAT 97
[2024-09-20 18:00] VITALS: BP 169/55; PULSE 58; RESP 14; TEMP 98.1; O2SAT 98
[2024-09-20 22:00] VITALS: BP_SYST 137; BP_SYST 139; BP_DIAS 38; BP_DIAS 40; PULSE 54; RESP 14; TEMP 98.3; O2SAT 97
[2024-09-21] MEDS ORDERED: bisacodyl 10mg suppository rectal RC PRN
[2024-09-21 06:00] VITALS: BP 123/53; PULSE 52; RESP 14; TEMP 97.8; O2SAT 96
[2024-09-21 07:32] LABS: BASOPHILS # (AUTO) 0.1 X10'3 (0-0.2); BASOPHILS % (AUTO) 0.7 % (0-1); EOSINOPHILS # (AUTO) 0.4 X10'3 (0-0.9); EOSINOPHILS % (AUTO) 5.2 % (0-6); HEMATOCRIT 38.3 % (35.0-45.0); HEMOGLOBIN 12.8 g/dl (12.0-16.0); LYMPHOCYTES # (AUTO) 2.3 X10'3 (1.1-4.8); LYMPHOCYTES % (AUTO) 28.8 % (21-51); MEAN CORPUSCULAR HEMOGLOBIN 29.3 PG (27.0-31.0); MEAN CORPUSCULAR HGB CONC 33.4 g/dL (33.0-36.5); MEAN CORPUSCULAR VOLUME 87.8 FL (78-98); MEAN PLATELET VOLUME 7.8 FL (7.4-10.4); MONOCYTES # (AUTO) 0.8 X10'3 (0-0.9); MONOCYTES % (AUTO) 9.3 % (2-12); NEUTROPHILS # (AUTO) 4.5 X10'3 (1.8-7.7); PLATELET COUNT 258 X10'3 (140-440); RED BLOOD COUNT 4.36 X10'6 (4.20-5.60); RED CELL DISTRIBUTION WIDTH 13.7 % (11.5-14.5); WHITE BLOOD COUNT 8.1 X10'3 (4.5-11.0)
[2024-09-21 07:50] LABS: ALANINE AMINOTRANSFERASE 23 U/L (12-78); ALBUMIN 2.9 G/DL (3.4-5.0); ALBUMIN/GLOBULIN RATIO 0.8 (1.1-1.5); ALKALINE PHOSPHATASE 107 IU/L (46-116); ANION GAP 6 (8-16); ASPARTATE AMINO TRANSFERASE 23 U/L (10-37); BILIRUBIN,TOTAL 0.4 MG/DL (0.1-1.0); BLOOD UREA NITROGEN 14 MG/DL (7-18); BUN/CREATININE RATIO 18.7 (10.0-20.0); CALCIUM 8.8 MG/DL (8.5-10.1); CHLORIDE 103 MMOL/L (99-107); CREATININE 0.75 MG/DL (0.40-0.90); GLUCOSE 147 MG/DL (70-104); POTASSIUM 3.9 MMOL/L (3.5-5.1); SODIUM 137 MMOL/L (135-145); TOTAL CARBON DIOXIDE 28.3 MMOL/L (24-32); TOTAL PROTEIN 6.6 G/DL (6.4-8.2); eCRCL 49 ML/MIN; eGFR 76 ML/MIN
[2024-09-21 08:30] VITALS: RESP 18; O2SAT 94
[2024-09-21 10:00] VITALS: BP 127/56; PULSE 50; RESP 16; TEMP 97.9; O2SAT 95
[2024-09-21 18:00] VITALS: BP 171/53; PULSE 53; RESP 16; TEMP 97.7; O2SAT 97
[2024-09-21 20:00] VITALS: BP_SYST 148; BP_SYST 171; BP_DIAS 51; BP_DIAS 53; PULSE 53; RESP 18; O2SAT 94
[2024-09-21] MEDS: acetaminophen 325mg tablet PO PRN (20:10)
[2024-09-21 22:00] VITALS: BP 175/66; PULSE 52; RESP 14; TEMP 98.3; O2SAT 95
[2024-09-22] VITALS (8 sets, daily range): BP systolic 115–147; BP diastolic 51–82; PULSE 45–54; RESP 14–20; TEMP 98.6–98.9; O2SAT 96–97
[2024-09-22 08:24] LABS: BASOPHILS # (AUTO) 0.1 X10'3 (0-0.2); BASOPHILS % (AUTO) 0.5 % (0-1); EOSINOPHILS # (AUTO) 0.4 X10'3 (0-0.9); HEMATOCRIT 39.6 % (35.0-45.0); HEMOGLOBIN 13.2 g/dl (12.0-16.0); LYMPHOCYTES # (AUTO) 2.7 X10'3 (1.1-4.8); LYMPHOCYTES % (AUTO) 26.4 % (21-51); MEAN CORPUSCULAR HEMOGLOBIN 29.1 PG (27.0-31.0); MEAN CORPUSCULAR HGB CONC 33.2 g/dL (33.0-36.5); MEAN CORPUSCULAR VOLUME 87.6 FL (78-98); MEAN PLATELET VOLUME 8.2 FL (7.4-10.4); MONOCYTES # (AUTO) 0.8 X10'3 (0-0.9); MONOCYTES % (AUTO) 8.1 % (2-12); NEUTROPHILS # (AUTO) 6.2 X10'3 (1.8-7.7); PLATELET COUNT 280 X10'3 (140-440); RED BLOOD COUNT 4.52 X10'6 (4.20-5.60); RED CELL DISTRIBUTION WIDTH 14.1 % (11.5-14.5); WHITE BLOOD COUNT 10.1 X10'3 (4.5-11.0)
[2024-09-22 08:42] LABS: ALANINE AMINOTRANSFERASE 24 U/L (12-78); ALBUMIN 3.1 G/DL (3.4-5.0); ALBUMIN/GLOBULIN RATIO 0.8 (1.1-1.5); ALKALINE PHOSPHATASE 122 IU/L (46-116); ANION GAP 7 (8-16); ASPARTATE AMINO TRANSFERASE 26 U/L (10-37); BILIRUBIN,TOTAL 0.4 MG/DL (0.1-1.0); BLOOD UREA NITROGEN 11 MG/DL (7-18); BUN/CREATININE RATIO 17.7 (10.0-20.0); CALCIUM 8.9 MG/DL (8.5-10.1); CHLORIDE 105 MMOL/L (99-107); CREATININE 0.62 MG/DL (0.40-0.90); GLUCOSE 132 MG/DL (70-104); POTASSIUM 3.7 MMOL/L (3.5-5.1); SODIUM 139 MMOL/L (135-145); TOTAL CARBON DIOXIDE 26.9 MMOL/L (24-32); TOTAL PROTEIN 6.9 G/DL (6.4-8.2); eCRCL 59 ML/MIN; eGFR > 90 ML/MIN
[2024-09-22] MEDS: magnesium citrate 296ml oral solution PO ONE (16:54)
[2024-09-22] MEDS ORDERED: polyethylene glycol 3350 17gm powd pack PO PRN (17:55)
[2024-09-23 06:00] VITALS: BP_SYST 140; BP_SYST 154; BP_DIAS 53; BP_DIAS 58; PULSE 50; PULSE 57; RESP 19; RESP 20; TEMP 97.9; TEMP 98.7; O2SAT 96
[2024-09-23 07:26] LABS: BASOPHILS % (AUTO) 0.4 % (0-1); EOSINOPHILS # (AUTO) 0.4 X10'3 (0-0.9); EOSINOPHILS % (AUTO) 3.6 % (0-6); HEMATOCRIT 41.7 % (35.0-45.0); HEMOGLOBIN 14.1 g/dl (12.0-16.0); LYMPHOCYTES # (AUTO) 3.2 X10'3 (1.1-4.8); LYMPHOCYTES % (AUTO) 28.9 % (21-51); MEAN CORPUSCULAR HEMOGLOBIN 29.3 PG (27.0-31.0); MEAN CORPUSCULAR HGB CONC 33.7 g/dL (33.0-36.5); MEAN CORPUSCULAR VOLUME 86.9 FL (78-98); MEAN PLATELET VOLUME 8.1 FL (7.4-10.4); MONOCYTES # (AUTO) 0.9 X10'3 (0-0.9); MONOCYTES % (AUTO) 8.2 % (2-12); NEUTROPHILS # (AUTO) 6.4 X10'3 (1.8-7.7); NEUTROPHILS % (AUTO) 58.9 % (42-75); PLATELET COUNT 292 X10'3 (140-440); RED CELL DISTRIBUTION WIDTH 13.8 % (11.5-14.5); WHITE BLOOD COUNT 10.9 X10'3 (4.5-11.0)
[2024-09-23 07:59] LABS: ALANINE AMINOTRANSFERASE 28 U/L (12-78); ALBUMIN 3.3 G/DL (3.4-5.0); ALBUMIN/GLOBULIN RATIO 0.8 (1.1-1.5); ALKALINE PHOSPHATASE 145 IU/L (46-116); ANION GAP 9 (8-16); ASPARTATE AMINO TRANSFERASE 28 U/L (10-37); BILIRUBIN,TOTAL 0.5 MG/DL (0.1-1.0); BLOOD UREA NITROGEN 11 MG/DL (7-18); BUN/CREATININE RATIO 14.5 (10.0-20.0); CALCIUM 9.1 MG/DL (8.5-10.1); CHLORIDE 101 MMOL/L (99-107); CREATININE 0.76 MG/DL (0.40-0.90); GLUCOSE 132 MG/DL (70-104); POTASSIUM 4.1 MMOL/L (3.5-5.1); SODIUM 137 MMOL/L (135-145); TOTAL CARBON DIOXIDE 27.3 MMOL/L (24-32); TOTAL PROTEIN 7.4 G/DL (6.4-8.2); eCRCL 48 ML/MIN; eGFR 75 ML/MIN
[2024-09-23] MEDS: lactulose 20gm/30ml cup PO PRN (08:31)
[2024-09-23] MEDS ORDERED: famotidine 20mg tablet PO PRN (15:24)
[2024-09-23 18:00] VITALS: BP 142/48; PULSE 59; RESP 16; TEMP 98.4; O2SAT 97
[2024-09-23 20:00] VITALS: BP 132/48; PULSE 58; RESP 16; O2SAT 94
[2024-09-23 22:00] VITALS: BP 94/43; PULSE 58; RESP 15; TEMP 98.5; O2SAT 96
[2024-09-24 06:13] LABS: BASOPHILS # (AUTO) 0.1 X10'3 (0-0.2); BASOPHILS % (AUTO) 0.6 % (0-1); EOSINOPHILS # (AUTO) 0.4 X10'3 (0-0.9); EOSINOPHILS % (AUTO) 3.5 % (0-6); HEMOGLOBIN 13.8 g/dl (12.0-16.0); LYMPHOCYTES # (AUTO) 2.4 X10'3 (1.1-4.8); LYMPHOCYTES % (AUTO) 23.1 % (21-51); MEAN CORPUSCULAR HEMOGLOBIN 29.4 PG (27.0-31.0); MEAN CORPUSCULAR HGB CONC 33.6 g/dL (33.0-36.5); MEAN CORPUSCULAR VOLUME 87.4 FL (78-98); MONOCYTES # (AUTO) 0.8 X10'3 (0-0.9); MONOCYTES % (AUTO) 8.2 % (2-12); NEUTROPHILS # (AUTO) 6.6 X10'3 (1.8-7.7); NEUTROPHILS % (AUTO) 64.6 % (42-75); PLATELET COUNT 300 X10'3 (140-440); RED BLOOD COUNT 4.69 X10'6 (4.20-5.60); RED CELL DISTRIBUTION WIDTH 13.7 % (11.5-14.5); WHITE BLOOD COUNT 10.3 X10'3 (4.5-11.0)
[2024-09-24 06:52] LABS: ALANINE AMINOTRANSFERASE 24 U/L (12-78); ALBUMIN 3.1 G/DL (3.4-5.0); ALBUMIN/GLOBULIN RATIO 0.8 (1.1-1.5); ALKALINE PHOSPHATASE 158 IU/L (46-116); ANION GAP 7 (8-16); ASPARTATE AMINO TRANSFERASE 23 U/L (10-37); BILIRUBIN,TOTAL 0.4 MG/DL (0.1-1.0); BLOOD UREA NITROGEN 12 MG/DL (7-18); BUN/CREATININE RATIO 14.5 (10.0-20.0); CHLORIDE 101 MMOL/L (99-107); CREATININE 0.83 MG/DL (0.40-0.90); GLUCOSE 189 MG/DL (70-104); POTASSIUM 3.8 MMOL/L (3.5-5.1); SODIUM 134 MMOL/L (135-145); TOTAL CARBON DIOXIDE 25.8 MMOL/L (24-32); eCRCL 44 ML/MIN; eGFR 68 ML/MIN
[2024-09-24 08:00] VITALS: BP 128/81; PULSE 87
[2024-09-24 10:00] VITALS: BP 115/57; PULSE 56; RESP 16; TEMP 98.5; O2SAT 98
[2024-09-24 20:00] VITALS: BP 120/46; PULSE 49; RESP 15; O2SAT 97
[2024-09-25] VITALS (7 sets, daily range): BP systolic 120–161; BP diastolic 46–59; PULSE 49–58; RESP 12–17; TEMP 97.8–99.8; O2SAT 96–99
[2024-09-25 06:13] LABS: BASOPHILS # (AUTO) 0.1 X10'3 (0-0.2); BASOPHILS % (AUTO) 0.9 % (0-1); EOSINOPHILS # (AUTO) 0.5 X10'3 (0-0.9); EOSINOPHILS % (AUTO) 4.7 % (0-6); HEMATOCRIT 39.5 % (35.0-45.0); HEMOGLOBIN 13.5 g/dl (12.0-16.0); LYMPHOCYTES # (AUTO) 3.5 X10'3 (1.1-4.8); LYMPHOCYTES % (AUTO) 33.2 % (21-51); MEAN CORPUSCULAR HEMOGLOBIN 29.8 PG (27.0-31.0); MEAN CORPUSCULAR HGB CONC 34.1 g/dL (33.0-36.5); MEAN CORPUSCULAR VOLUME 87.4 FL (78-98); MONOCYTES # (AUTO) 0.9 X10'3 (0-0.9); MONOCYTES % (AUTO) 8.3 % (2-12); NEUTROPHILS # (AUTO) 5.6 X10'3 (1.8-7.7); NEUTROPHILS % (AUTO) 52.9 % (42-75); PLATELET COUNT 321 X10'3 (140-440); RED BLOOD COUNT 4.52 X10'6 (4.20-5.60); RED CELL DISTRIBUTION WIDTH 13.9 % (11.5-14.5); WHITE BLOOD COUNT 10.6 X10'3 (4.5-11.0)
[2024-09-25 06:34] LABS: ALANINE AMINOTRANSFERASE 24 U/L (12-78); ALBUMIN/GLOBULIN RATIO 0.8 (1.1-1.5); ALKALINE PHOSPHATASE 163 IU/L (46-116); ANION GAP 9 (8-16); ASPARTATE AMINO TRANSFERASE 22 U/L (10-37); BILIRUBIN,TOTAL 0.4 MG/DL (0.1-1.0); BLOOD UREA NITROGEN 9 MG/DL (7-18); BUN/CREATININE RATIO 13.2 (10.0-20.0); CALCIUM 8.9 MG/DL (8.5-10.1); CHLORIDE 104 MMOL/L (99-107); CREATININE 0.68 MG/DL (0.40-0.90); GLUCOSE 141 MG/DL (70-104); POTASSIUM 4.1 MMOL/L (3.5-5.1); SODIUM 139 MMOL/L (135-145); TOTAL CARBON DIOXIDE 25.7 MMOL/L (24-32); TOTAL PROTEIN 6.9 G/DL (6.4-8.2); eCRCL 54 ML/MIN; eGFR 85 ML/MIN
[2024-09-26 06:00] VITALS: BP 128/53; PULSE 52; RESP 16; TEMP 98.7; O2SAT 95
[2024-09-26 06:52] LABS: BASOPHILS % (AUTO) 0.6 % (0-1); EOSINOPHILS # (AUTO) 0.5 X10'3 (0-0.9); EOSINOPHILS % (AUTO) 6.1 % (0-6); HEMOGLOBIN 13.6 g/dl (12.0-16.0); LYMPHOCYTES # (AUTO) 2.9 X10'3 (1.1-4.8); LYMPHOCYTES % (AUTO) 33.2 % (21-51); MEAN CORPUSCULAR HEMOGLOBIN 29.6 PG (27.0-31.0); MEAN CORPUSCULAR HGB CONC 34.1 g/dL (33.0-36.5); MEAN CORPUSCULAR VOLUME 86.7 FL (78-98); MEAN PLATELET VOLUME 8.1 FL (7.4-10.4); MONOCYTES # (AUTO) 0.8 X10'3 (0-0.9); NEUTROPHILS # (AUTO) 4.5 X10'3 (1.8-7.7); NEUTROPHILS % (AUTO) 51.1 % (42-75); PLATELET COUNT 284 X10'3 (140-440); RED BLOOD COUNT 4.61 X10'6 (4.20-5.60); WHITE BLOOD COUNT 8.7 X10'3 (4.5-11.0)
[2024-09-26 06:55] LABS: ALANINE AMINOTRANSFERASE 23 U/L (12-78); ALBUMIN 3.1 G/DL (3.4-5.0); ALBUMIN/GLOBULIN RATIO 0.8 (1.1-1.5); ALKALINE PHOSPHATASE 172 IU/L (46-116); ANION GAP 6 (8-16); ASPARTATE AMINO TRANSFERASE 23 U/L (10-37); BILIRUBIN,TOTAL 0.4 MG/DL (0.1-1.0); BLOOD UREA NITROGEN 12 MG/DL (7-18); CHLORIDE 101 MMOL/L (99-107); CREATININE 0.75 MG/DL (0.40-0.90); GLUCOSE 121 MG/DL (70-104); POTASSIUM 3.8 MMOL/L (3.5-5.1); SODIUM 135 MMOL/L (135-145); TOTAL CARBON DIOXIDE 28.5 MMOL/L (24-32); TOTAL PROTEIN 7.1 G/DL (6.4-8.2); eCRCL 49 ML/MIN; eGFR 76 ML/MIN
[2024-09-26 08:00] VITALS: RESP 18; O2SAT 98
[2024-09-26 10:00] VITALS: BP 114/50; PULSE 58; RESP 17; TEMP 97.5; O2SAT 98
== END 2024-09-26 14:10 | disposition swing bed (61) | DRG 543 ==
LOC: ER 11:17 → ED HOLD 19:27 → PCU 3S 09-14 14:10 → ORTHO 4S 09-18 22:55
PROVIDERS: ADMIT Nurse Practitioner Family; ATTEND Nurse Practitioner Family
PROC: B3251ZZ Computerized Tomography (CT Scan) of Bilateral Common Carotid Arteries using Low Osmolar Contrast (ICD-10-PCS; principal; 2024-09-24)
PROC: B32G1ZZ Computerized Tomography (CT Scan) of Bilateral Vertebral Arteries using Low Osmolar Contrast (ICD-10-PCS; 2024-09-24)
PROC: B32R1ZZ Computerized Tomography (CT Scan) of Intracranial Arteries using Low Osmolar Contrast (ICD-10-PCS; 2024-09-24)
PROC: B3281ZZ Computerized Tomography (CT Scan) of Bilateral Internal Carotid Arteries using Low Osmolar Contrast (ICD-10-PCS; 2024-09-24)
DX: M48.54XA Collapsed vertebra, not elsewhere classified, thoracic region, initial encounter for fracture (principal); N39.0 Urinary tract infection, site not specified; A59.03 Trichomonal cystitis and urethritis; I16.0 Hypertensive urgency; M06.9 Rheumatoid arthritis, unspecified; I10 Essential (primary) hypertension; I48.0 Paroxysmal atrial fibrillation; E78.5 Hyperlipidemia, unspecified; F41.9 Anxiety disorder, unspecified; M54.9 Dorsalgia, unspecified; M79.7 Fibromyalgia; K21.9 Gastro-esophageal reflux disease without esophagitis; G89.29 Other chronic pain; M48.56XA Collapsed vertebra, not elsewhere classified, lumbar region, initial encounter for fracture; E03.9 Hypothyroidism, unspecified; T50.995A Adverse effect of other drugs, medicaments and biological substances, initial encounter; Y92.89 Other specified places as the place of occurrence of the external cause; Z87.891 Personal history of nicotine dependence; Z88.0 Allergy status to penicillin; Z88.6 Allergy status to analgesic agent; Z90.710 Acquired absence of both cervix and uterus; Z79.01 Long term (current) use of anticoagulants; Z79.899 Other long term (current) drug therapy; Z91.013 Allergy to seafood; R55 Syncope and collapse
CPT/HCPCS: 36415; 70450; 70496; 70498; 70551; 71250; 72131; 72146; 72148; 73522; 73721; 80053; 80061; 81001; 82948; 83605; 84145; 84439; 84443; 85025; 87081; 87088; 93005; 93306; 93880; 96374; 97110; 97116; 97161; 97530; 99285; A6258; G0378; J0360; J0696; J1171; J1815; J2060; J2270; J2405; J3490; J7030; Q9967